=== PATIENT | male | born 1950 | race Asian ===

== ENCOUNTER 2018-01-27 13:42 | Inpatient (IN) | payer MEDICAID ==
[~2018-01-27] VITALS: Ht 167.6 cm; Wt 65.3 kg
[~2018-01-27 13:42] MED LIST: CLOPIDOGREL75 M1 PO; SUCRALFATE1 GM PO; VIREAD300 MG PO
[2018-01-27 14:01] VITALS: Ht 167.6 cm; Wt 65.3 kg
[2018-01-27 15:12] LABS: BASOPHIL % 0.1 % (0-2); PLATELET COUNT 62 x10^3mcL (130-400); RED CELL DISTRIBUTION WIDTH 14.5 % (11.5-14.5)
[2018-01-27 17:42] LABS: CALCIUM 9.3 mg/dL (8.5-10.1); CREATININE SERUM 1.8 mg/dL (0.7-1.3); POTASSIUM SERUM 4.2 mmol/L (3.5-5.1)
[2018-01-27 17:58] LABS: BILIRUBIN TOTAL 0.26 mg/dL (0.20-1.00); TOTAL PROTEIN, SERUM 11.7 g/dL (6.4-8.2)
[2018-01-27 18:24] LABS: microscopic required? YES; urine erythrocyte NEGATIVE (NEGATIVE)
[2018-01-27 20:10] VITALS: BP 133/81
[2018-01-27 21:54] LABS: MAGNESIUM 2.6 mg/dL (1.8-2.4); PHOSPHOROUS 5.3 mg/dL (2.5-4.9)
[2018-01-27 21:55] LABS: CHOLESTEROL/HDL RATIO 5.1
[2018-01-27 22:01] LABS: FREE T4 1.07 ng/dL (0.76-1.46); FREE THYROXINE INDEX 1.5 ug/dL (1.4-4.5); T4(THYROXINE) 3.8 ug/dL (4.7-13.3)
[2018-01-27 22:42] LABS: AMPHETAMINE QUAL UR NONE DETECTED (NEG <=1000)
[2018-01-28 02:02] LABS: T3 TOTAL 0.22 ng/mL
[2018-01-28 06:31] VITALS: BP 139/75
[2018-01-28 07:00] LABS: IRON 292 ug/dL (65-170); TOTAL IRON BINDING CAPACITY 169 ug/dL (250-450)
[2018-01-28 08:13] LABS: RED BLOOD CELLS 2.49 M/mm3 (4.52-5.90)
[2018-01-28 09:04] LABS: CALCIUM 9.4 mg/dL (8.5-10.1); CARBON DIOXIDE 22.5 mmol/L (21-32); MAGNESIUM 2.4 mg/dL (1.8-2.4); PHOSPHOROUS 5.2 mg/dL (2.5-4.9)
[2018-01-28 09:42] LABS: RED CELL DISTRIBUTION WIDTH 14.9 % (11.5-14.5)
[2018-01-28 10:48] VITALS: BP 138/76
[2018-01-28 12:43] LABS: ATYPICAL LYMPH 2 %; BAND NEUTROPHIL 0 % (0-10); BASOPHIL 0 % (0-2); METAMYELOCTE 1 % (0-2); MONOCYTE 7 % (0-7); SEGMENTED NEUTROPHILS 52 % (37-75)
[2018-01-28 12:44] LABS: PLATELET MORPHOLOGY PLATELETS DECREASED; rbc morphology (normal/abnorm) ABNORMAL (NORMAL)
[2018-01-28 13:12] LABS: PLATELET COUNT 41 x10^3mcL (130-400)
[2018-01-28 14:06] VITALS: BP 122/70
[2018-01-28 19:06] VITALS: BP 125/83
[2018-01-28 21:35] VITALS: BP 136/84
[2018-01-29 06:09] VITALS: BP 125/67
[2018-01-29 06:25] LABS: CALCIUM 9.6 mg/dL (8.5-10.1); CARBON DIOXIDE 24.5 mmol/L (21-32); CREATININE SERUM 1.7 mg/dL (0.7-1.3); MAGNESIUM 2.2 mg/dL (1.8-2.4); PHOSPHOROUS 4.8 mg/dL (2.5-4.9); POTASSIUM SERUM 4.2 mmol/L (3.5-5.1)
[2018-01-29 07:24] LABS: BASOPHIL % 0.3 % (0-2); RED CELL DISTRIBUTION WIDTH 14.3 % (11.5-14.5)
[2018-01-29 07:31] LABS: PLATELET COUNT 55 x10^3mcL (130-400)
[2018-01-29 07:36] LABS: rbc morphology (normal/abnorm) ABNORMAL (NORMAL)
[2018-01-29 09:50] VITALS: BP 119/67
[2018-01-29 17:45] VITALS: BP 122/65
[2018-01-29 21:08] VITALS: BP 137/76
[2018-01-29 21:20] LABS: BASOPHIL % 0.3 % (0-2)
[2018-01-29 21:29] LABS: PLATELET COUNT 50 x10^3mcL (130-400); RED CELL DISTRIBUTION WIDTH 14.6 % (11.5-14.5)
[2018-01-29 22:18] LABS: rbc morphology (normal/abnorm) ABNORMAL (NORMAL); target cell (codocyte) 2+
[2018-01-30 03:28] LABS: BASOPHIL % 0.3 % (0-2); RED CELL DISTRIBUTION WIDTH 14.5 % (11.5-14.5)
[2018-01-30 03:38] LABS: PLATELET COUNT 44 x10^3mcL (130-400)
[2018-01-30 04:03] LABS: rbc morphology (normal/abnorm) ABNORMAL (NORMAL)
[2018-01-30 05:39] VITALS: BP 143/85
[2018-01-30 08:00] VITALS: BP 130/78
[2018-01-30 11:57] LABS: CALCIUM 9.1 mg/dL (8.5-10.1); CARBON DIOXIDE 24.9 mmol/L (21-32); CREATININE SERUM 1.5 mg/dL (0.7-1.3); MAGNESIUM 2.4 mg/dL (1.8-2.4); PHOSPHOROUS 3.2 mg/dL (2.5-4.9); POTASSIUM SERUM 3.6 mmol/L (3.5-5.1)
[2018-01-30 12:00] VITALS: BP 142/84
[2018-01-30 21:03] VITALS: BP 122/70
[2018-01-30 21:10] VITALS: BP 135/83
[2018-01-30 21:40] VITALS: BP 136/84
[2018-01-31 00:40] VITALS: BP 127/74
[2018-01-31 02:35] LABS: BASOPHIL % 0.2 % (0-2)
[2018-01-31 02:39] LABS: PLATELET COUNT 37 x10^3mcL (130-400); RED CELL DISTRIBUTION WIDTH 16.1 % (11.5-14.5)
[2018-01-31 03:00] LABS: rbc morphology (normal/abnorm) ABNORMAL (NORMAL)
[2018-01-31 05:02] VITALS: BP 122/71
[2018-01-31 07:01] LABS: BASOPHIL % 0.3 % (0-2); CALCIUM 9.1 mg/dL (8.5-10.1); CARBON DIOXIDE 23.3 mmol/L (21-32); CREATININE SERUM 1.7 mg/dL (0.7-1.3); MAGNESIUM 2.5 mg/dL (1.8-2.4); PHOSPHOROUS 3.2 mg/dL (2.5-4.9); POTASSIUM SERUM 3.8 mmol/L (3.5-5.1)
[2018-01-31 07:04] LABS: PLATELET COUNT 38 x10^3mcL (130-400); RED CELL DISTRIBUTION WIDTH 16.8 % (11.5-14.5)
[2018-01-31 08:56] VITALS: BP 133/77
[2018-01-31 18:45] VITALS: BP 142/89
[2018-01-31 21:17] VITALS: BP 129/74
[2018-02-01 05:31] VITALS: BP 130/83
[2018-02-01 06:29] LABS: CARBON DIOXIDE 23.2 mmol/L (21-32); CREATININE SERUM 1.6 mg/dL (0.7-1.3); MAGNESIUM 2.5 mg/dL (1.8-2.4); PHOSPHOROUS 3.9 mg/dL (2.5-4.9); POTASSIUM SERUM 3.8 mmol/L (3.5-5.1)
[2018-02-01 07:18] LABS: BASOPHIL % 1.4 % (0-2)
[2018-02-01 07:38] LABS: PLATELET COUNT 45 x10^3mcL (130-400); RED CELL DISTRIBUTION WIDTH 16.5 % (11.5-14.5)
[2018-02-01 09:07] VITALS: BP 123/74
[2018-02-01 11:54] LABS: BASOPHIL % 0.2 % (0-2)
[2018-02-01 11:55] LABS: PLATELET COUNT 25 x10^3mcL (130-400); RED CELL DISTRIBUTION WIDTH 16.8 % (11.5-14.5)
[2018-02-01 13:18] VITALS: BP 123/74
[2018-02-01] MEDS ORDERED: FER300 PO (13:21)
[2018-02-01] MEDS ORDERED: LAC30L PO (13:22)
[2018-02-01] MEDS ORDERED: VITC PO (13:22)
[2018-02-01] MEDS ORDERED: FOL1 PO (13:23)
[2018-02-01] MEDS ORDERED: MECLIZINE HCL12.5 MG PO (13:24)
[2018-02-01 13:43] VITALS: BP 122/75
[2018-02-01 18:10] VITALS: BP 141/82
[2018-02-01 20:10] VITALS: BP 142/82
== END 2018-02-01 21:18 | disposition home or self-care (01) | DRG 241 ==
LOC: ED 13:42 → DU 18:12
PROVIDERS: Emergency Medicine; Family Medicine; Internal Medicine Gastroenterology
PROC: 30233N1 Transfusion of Nonautologous Red Blood Cells into Peripheral Vein, Percutaneous Approach (ICD-10-PCS; 2018-01-30)
PROC: 0DBH8ZX Excision of Cecum, Via Natural or Artificial Opening Endoscopic, Diagnostic (ICD-10-PCS; 2018-01-31)
PROC: 0DB68ZX Excision of Stomach, Via Natural or Artificial Opening Endoscopic, Diagnostic (ICD-10-PCS; principal; 2018-01-31 13:30)
PROC: 0D5H8ZZ Destruction of Cecum, Via Natural or Artificial Opening Endoscopic (ICD-10-PCS; 2018-01-31 13:30)
DX: K29.61 Other gastritis with bleeding (principal); N17.0 Acute kidney failure with tubular necrosis; E43 Unspecified severe protein-calorie malnutrition; G93.41 Metabolic encephalopathy; E72.20 Disorder of urea cycle metabolism, unspecified; I24.9 Acute ischemic heart disease, unspecified; J44.9 Chronic obstructive pulmonary disease, unspecified; K73.9 Chronic hepatitis, unspecified; D69.6 Thrombocytopenia, unspecified; E11.65 Type 2 diabetes mellitus with hyperglycemia; E87.1 Hypo-osmolality and hyponatremia; E83.41 Hypermagnesemia; I25.10 Atherosclerotic heart disease of native coronary artery without angina pectoris; F17.210 Nicotine dependence, cigarettes, uncomplicated; E78.00 Pure hypercholesterolemia, unspecified; E86.0 Dehydration; E83.39 Other disorders of phosphorus metabolism; D64.9 Anemia, unspecified; K63.5 Polyp of colon; K64.8 Other hemorrhoids; T45.525A Adverse effect of antithrombotic drugs, initial encounter; G90.8 Other disorders of autonomic nervous system; N28.1 Cyst of kidney, acquired; I08.3 Combined rheumatic disorders of mitral, aortic and tricuspid valves; Z86.73 Personal history of transient ischemic attack (TIA), and cerebral infarction without residual deficits; Z82.49 Family history of ischemic heart disease and other diseases of the circulatory system; Z82.3 Family history of stroke; Z68.22 Body mass index [BMI] 22.0-22.9, adult; Y92.89 Other specified places as the place of occurrence of the external cause
CPT/HCPCS: 43235; 45378; 82595; 82962; 83880; 84439; 87046; 87046-59; 97110-GP; 97530-GP; J1200; J1610; J1885; J2250; J2310; J2405; J2550; J2916; J3010; J3490; J7030; J7040; J7050; J7620; J8597; P9016; Q0092; Q0163